=== PATIENT | male | born 1955 | race Two or more races ===

== ENCOUNTER 2018-04-24 23:05 | Emergency (ER) | payer MEDICARE ==
[2018-04-24] MEDS ORDERED: LORazepam 2 MG/ML SDV IVPUSH ONE (23:14)
[2018-04-24] MEDS ORDERED: Aspirin 81 MG Tab.Chew PO ONE (23:14)
--- NOTE | 2018-04-24 23:15 | EDM.PDOC ---
ED HPI GENERAL MEDICAL PROBLEM - General Chief Complaint: Cardiovascular Problem Stated Complaint: CHEST PAIN Time Seen by Provider: 04/24/18 23:14 Source of Information: Reports: Patient - History of Present Illness INITIAL COMMENTS - FREE TEXT/NARRATIVE: HISTORY AND PHYSICAL: History of present illness: []A shunt presents via EMS Family has been working in a home which was 105 the knee was covered in insulation he became hot state that he felt like his heart was racing on arrival he did appear anxious he denies any chest pain shortness breath or dizziness I offered him IV fluids and he refuses he states that he just wants to be checked go home He denies fever nausea vomiting diarrhea constipation chest pain shortness breath headache dizziness or palpitation no bowel or urine symptoms Review of systems: As per history of present illness and below otherwise all systems reviewed and negative. Past medical history: As per history of present illness and as reviewed below otherwise noncontributory. Surgical history: As per history of present illness and as reviewed below otherwise noncontributory. Social history: No reported history of drug or alcohol abuse. Family history: As per history of present illness and as reviewed below otherwise noncontributory. Physical exam: HEENT: Atraumatic, normocephalic, pupils reactive, negative for conjunctival pallor or scleral icterus, mucous membranes moist, throat clear, neck supple, nontender, trachea midline. Lungs: Clear to auscultation, breath sounds equal bilaterally, chest nontender. Heart: S1S2, regular, negative for clicks, rubs, or JVD. Abdomen: Soft, nondistended, nontender. Negative for masses or hepatosplenomegaly. Negative for costovertebral tenderness. Pelvis: Stable nontender. Genitourinary: Deferred. Rectal: Deferred. Extremities: Atraumatic, negative for cords or calf pain. Neurovascular unremarkable. Neuro: Awake, alert, oriented. Cranial nerves II through XII unremarkable. Cerebellum unremarkable. Motor and sensory unremarkable throughout. Exam nonfocal. Diagnostics: [CBC CMP troponin EKG Chest 1 view ] Therapeutics: Aspirin 324 mg chewable Normal saline 1 25 mL per hour-refused Lorazepam was considered on arrival however discontinued Milliequivalents of potassium 20 mEq daily for a week Follow-up with primary care patient refused observation admission desires to go home ession: Anxiety resolved Heat exhaustion mild Kalemia defintive disposition and diagnosis as appropriate pending reevaluation and review of above. - Related Data Allergies Allergy/AdvReac Type Severity Reaction Status Date / Time No Known Allergies Allergy Verified 04/24/18 23:12 ED ROS GENERAL - Review of Systems Review Of Systems: See Below ED EXAM, GENERAL - Physical Exam Exam: See Below Course - Vital Signs Last Recorded V/S: Last Vital Signs Temp 96.6 F 04/24/18 23:08 Pulse 855 H 04/24/18 23:08 Resp 21 H 04/24/18 23:08 BP 117/60 04/24/18 23:08 Pulse Ox 94 L 04/24/18 23:08 - Orders/Labs/Meds Orders: Active Orders 24 hr Category Date Time Status EKG Documentation Completion [RC] STAT Care 04/24/18 23:15 Active Chest 1V Frontal [CR] Stat Exams 04/24/18 23:15 Taken UA W/MICROSCOPIC [URIN] Stat Lab 04/24/18 23:14 Ordered Labs: Laboratory Tests 04/24/18 04/24/18 04/24/18 Range/Units 23:05 23:05 23:14 WBC 4.55 (4.0-11.0) K/uL RBC 4.70 (4.50-5.90) M/uL Hgb 13.8 (13.0-17.0) g/dL Hct 39.2 (38.0-50.0) % MCV 83.4 (80.0-98.0) fL MCH 29.4 (27.0-32.0) pg MCHC 35.2 (31.0-37.0) g/dL RDW Std Deviation 44.5 (28.0-62.0) fl RDW Coeff of Emma 15 (11.0-15.0) % Plt Count 158 (150-400) K/uL MPV 10.90 (7.40-12.00) fL Neut % (Auto) 57.2 (48.0-80.0) % Lymph % (Auto) 33.8 (16.0-40.0) % Callaway % (Auto) 6.8 (0.0-15.0) % Eos % (Auto) 1.8 (0.0-7.0) % Baso % (Auto) 0.4 (0.0-1.5) % Neut # (Auto) 2.6 (1.4-5.7) K/uL Lymph # (Auto) 1.5 (0.6-2.4) K/uL Callaway # (Auto) 0.3 (0.0-0.8) K/uL Eos # (Auto) 0.1 (0.0-0.7) K/uL Baso # (Auto) 0.0 (0.0-0.1) K/uL Nucleated RBC % 0.0 /100WBC Nucleated RBCs # 0 K/uL Sodium 137 (136-148) mmol/L Potassium 3.0 L (3.5-5.1) mmol/L Chloride 98 (98-107) mmol/L Carbon Dioxide 23.4 (21.0-32.0) mmol/L BUN 32 H (7.0-18.0) mg/dL Creatinine 1.3 (0.8-1.3) mg/dL Est Cr Clr Drug Dosing 64.88 mL/min Estimated GFR (MDRD) 55.6 ml/min Glucose 241 H (74-106) mg/dL Calcium 8.1 L (8.5-10.1) mg/dL Total Bilirubin 0.4 (0.2-1.0) mg/dL AST 51 H (15-37) IU/L ALT 61 (14-63) IU/L Alkaline Phosphatase 144 H (46-116) U/L Troponin I < 0.050 (0.000-0.056) ng/mL Total Protein 7.5 (6.4-8.2) g/dL Albumin 4.2 (3.4-5.0) g/dL Globulin 3.3 (2.0-3.5) g/dL Albumin/Globulin Ratio 1.3 (1.3-2.8) Urine Color YELLOW Urine Appearance CLEAR Urine pH 6.0 (5.0-8.0) Ur Specific [place] <= 1.005 (1.001-1.035) Urine Protein NEGATIVE (NEGATIVE) mg/dL Urine Glucose (UA) >=1000 (NEGATIVE) mg/dL Urine Ketones NEGATIVE (NEGATIVE) mg/dL Urine Occult Blood NEGATIVE (NEGATIVE) Urine Nitrite NEGATIVE (NEGATIVE) Urine Bilirubin NEGATIVE (NEGATIVE) Urine Urobilinogen 0.2 (<2.0) EU/dL Ur Leukocyte Esterase NEGATIVE (NEGATIVE) Urine RBC 0-2 (0-2/HPF) Urine WBC 0-1 (0-5/HPF) Ur Epithelial Cells RARE (NONE-FEW) Urine Bacteria RARE (NEGATIVE) Meds: Medications Discontinued Medications Generic Name Dose Route Start Last Admin Trade Name James PRN Reason Stop Dose Admin Aspirin 324 mg 04/24/18 23:14 04/24/18 23:27 Aspirin PO 04/24/18 23:15 324 mg ONETIME ONE Administration Lorazepam 0.5 mg 04/24/18 23:14 Ativan IVPUSH 04/24/18 23:15 ONETIME ONE Potassium Chloride 40 meq 04/24/18 23:59 Klor-Con M20 PO 04/25/18 00:00 ONETIME ONE Departure - Departure Time of Disposition: 00:01 Disposition: Home, Self-Care 01 Condition: Fair Clinical Impression: Hypokalemia Referrals: PCP,Unknown [Primary Care Provider] - Forms: ED Department Discharge Additional Instructions: Medication as prescribed Fluid hydration as discussed Rest Follow-up with primary care in 2 weeks sooner as needed reTurn if symptoms persist or worsen or new concerning symptoms develop [facility] [address] [place] [address] The following information is given to patients seen in the emergency department who are being discharged to home. This information is to outline your options for follow-up care. We provide all patients seen in our emergency department with a follow-up referral. The need for follow-up, as well as the timing and circumstances, are variable depending upon the specifics of your emergency department visit. If you don't have a primary care physician on staff, we will provide you with a referral. We always advise you to contact your personal physician following an emergency department visit to inform them of the circumstance of the visit and for follow-up with them and/or the need for any referrals to a consulting specialist. The emergency department will also refer you to a specialist when appropriate. This referral assures that you have the opportunity for follow-up care with a specialist. All of these measure are taken in an effort to provide you with optimal care, which includes your follow-up. Under all circumstances we always encourage you to contact your private physician who remains a resource for coordinating your care. When calling for follow-up care, please make the office aware that this follow-up is from your recent emergency room visit. If for any reason you are refused follow-up, please contact the [facility] emergency department at and asked to speak to the emergency department charge nurse. - My Orders Last 24 Hours: My Active Orders 04/24/18 23:14 UA W/MICROSCOPIC [URIN] Stat 04/24/18 23:15 EKG Documentation Completion [RC] STAT Chest 1V Frontal [CR] Stat - Assessment/Plan Last 24 Hours: My Active Orders 04/24/18 23:14 UA W/MICROSCOPIC [URIN] Stat 04/24/18 23:15 EKG Documentation Completion [RC] STAT Chest 1V Frontal [CR] Stat
[2018-04-24 23:52] LABS: CHLORIDE,CL 98 mmol/L (98-107); SODIUM,NA 137 mmol/L (136-148)
[2018-04-24] MEDS ORDERED: Potassium Chloride 20 MEQ Tab.ER PO ONE (23:59)
--- NOTE | 2018-04-27 15:25 | CR ---
EXAM DATE: 04/24/18 PATIENT'S AGE: 63 Patient: PEG HOLMAN Facility: [place], [place] Site . Site : [id number] Study: XRay Chest [id number] 11:44:39 PM Ordering Physician: Reuben Hand Final Report: INDICATION: Chest pain. COMPARISON: None. FINDINGS: Bony thorax and soft tissue structures are intact. Transvenous pacemaker is noted with leads terminating at the level the right atrium and the right ventricle. Cardiac and mediastinal silhouettes are otherwise within normal limits. The lungs are free of infiltrate. IMPRESSION: No active cardiopulmonary disease. Dictated by Chelsi Dickson MD @ Apr 24 2018 11:46PM (Electronic Signature) Report Signed by Proxy. [email or web address]
== END 2018-04-25 00:30 | disposition home or self-care (01) ==
LOC: MW.ED 23:05
DX: E87.6 Hypokalemia (principal)
CPT/HCPCS: 71045; 80053; 81001; 84484; 85025; 93005; 96374; 99285; A9270